=== PATIENT | male | born 1995 | race Caucasian/White ===

== ENCOUNTER 2022-02-20 08:58 | Emergency (ER) | payer OTHER ==
[~2022-02-20] VITALS: Ht 175.3 cm; Wt 105.0 kg
[2022-02-20] MEDS ORDERED: CEPH500T PO (12:25)
[2022-02-20 12:44] VITALS: BP 144/88
== END 2022-02-20 12:48 | disposition home or self-care (01) ==
LOC: M ED 08:58
DX: L60.0 Ingrowing nail (principal)